=== PATIENT | male | born 1990 | race Caucasian/White ===

== ENCOUNTER 2024-04-09 19:48 | Emergency (ER) | payer MEDICAID ==
[2024-04-09 20:19] LABS: BILIRUBIN,URINE NEGATIVE (NEGATIVE); GLUCOSE, URINE (UA) NEGATIVE (NEGATIVE); KETONES,URINE (UA) NEGATIVE (NEGATIVE); LEUKOCYTE ESTERASE, URINE NEGATIVE (NEGATIVE); NITRITE,URINE NEGATIVE (NEGATIVE); OCCULT BLOOD,URINE NEGATIVE (NEGATIVE); PROTEIN,URINE NEGATIVE (NEGATIVE); UROBILINOGEN,URINE 0.2 (NORMAL) E.U./dL (NORMAL)
[2024-04-09 20:22] LABS: BASOPHILS # (AUTO) 0.1 10^3/uL (0.0-0.1); BASOPHILS % (AUTO) 0.9 %; HGB - HEMOGLOBIN 14.8 g/dL (14.0-18.0); LYMPHOCYTES # (AUTO) 2.5 10^3/uL (1.5-3.5); LYMPHOCYTES % (AUTO) 27.8 %; MEAN CORPUSCULAR HEMOGLOBIN 30.6 pg (27.0-31.0); MEAN CORPUSCULAR HGB CONC 33.6 g/dL (32.0-36.0); MEAN CORPUSCULAR VOLUME 90.9 fL (80.0-94.0); MONOCYTES # (AUTO) 0.5 10^3/uL (0.0-1.0); MONOCYTES % (AUTO) 5.8 %; NEUTROPHILS # (AUTO) 5.7 10^3/uL (1.5-6.6); NEUTROPHILS % (AUTO) 65.3 %; PLT - PLATELET COUNT 266 10^3/uL (130-450); RED BLOOD COUNT 4.84 10^6/uL (4.70-6.10); RED CELL DISTRIBUTION WIDTH 12.4 % (12.0-15.0); WHITE BLOOD COUNT 8.8 x10^3/uL (4.8-10.8)
--- NOTE | 2024-04-09 20:25 | ED Physician Documentation ---
PD HPI MHE - Stated complaint Stated Complaint: MHE - Chief complaint Chief Complaint: MHE - History obtained from History obtained from: Patient - History of Present Illness Primary symptom: Suicidal ideation, Depression Pain level max: 0 Pain level now: 0 - Additional information Additional information: Patient is a 34-year-old male who recently moved here from [place]. He states that he has a longstanding history of depression. He had been on Lexapro in the past but did not want to be on it long-term, therefore he weaned himself off about a year ago. Since moving to the [place] he has not been able to find a psychiatrist or primary care provider. He went to the walk-in clinic today and was sent here for evaluation. He states that he does have suicidal thoughts but does not have any intention to act on them. He states he does not have a plan. He states he has never attempted suicide and has never been hospitalized. He is interested in restarting his Lexapro. No hallucinations. Uses marijuana occasionally. Rarely drinks alcohol. Review of Systems Constitutional: denies: Fever, Chills GI: denies: Vomiting Skin: denies: Rash Musculoskeletal: denies: Neck pain, Back pain Neurologic: denies: Headache PD PAST MEDICAL HISTORY - Past Medical History Past Medical History: Yes Cardiovascular: None Respiratory: None Neuro: None Endocrine/Autoimmune: None GI: None : None HEENT: None Psych: Depression Musculoskeletal: Other Derm: None Other Past Medical History: DJD - Past Surgical History Past Surgical History: Yes - Present Medications Home Medications: Ambulatory Orders Medication Instructions Recorded Confirmed Escitalopram [Lexapro] 10 mg PO DAILY #30 tablet 04/09/24 - Allergies Allergies/Adverse Reactions: Allergies Allergy/AdvReac Type Severity Reaction Status Date / Time No Known Drug Allergies Allergy Verified 04/09/24 20:01 - Social History Does the pt smoke?: No Smoking Status: Never smoker Does the pt drink ETOH?: Yes ETOH Use: Beer PD ED PE NORMAL - Vitals Vital signs reviewed: Yes - General General: Alert and oriented X 3, No acute distress - HEENT HEENT: PERRL, Moist mucous membranes - Neck Neck: Supple, no meningeal sign - Cardiac Cardiac: RRR - Respiratory Respiratory: No respiratory distress, Clear bilaterally - Abdomen Abdomen: Soft, Non tender, Non distended - Derm Derm: Warm and dry - Neuro Neuro: Alert and oriented X 3 - Psych Psych: Normal mood, Normal affect Results - Vitals Vitals: Vital Signs - 24 hr 04/09/24 04/09/24 04/09/24 19:52 20:00 22:46 Temperature 37.9 C Heart Rate 72 72 70 Respiratory 16 16 Rate Blood Pressure 127/100 H 125/89 H O2 Saturation 99 98 Oxygen O2 Source Room air - Labs Labs: Laboratory Tests 04/09/24 04/09/24 04/09/24 20:07 20:15 20:15 WBC 8.8 RBC 4.84 Hgb 14.8 Hct 44.0 MCV 90.9 MCH 30.6 MCHC 33.6 RDW 12.4 Plt Count 266 MPV 10.0 Neut # (Auto) 5.7 Lymph # (Auto) 2.5 [place] # (Auto) 0.5 Eos # (Auto) 0.0 Baso # (Auto) 0.1 Absolute Nucleated RBC 0.00 Nucleated RBC % 0.0 Sodium 138 Potassium 3.4 L Chloride 102 Carbon Dioxide 30 Anion Gap 6.0 BUN 16 Creatinine 0.9 Estimated GFR (MDRD) 97 Glucose 120 H Calcium 9.5 Magnesium 1.9 Total Bilirubin 0.7 AST 16 ALT 14 Alkaline Phosphatase 88 Total Protein 7.7 Albumin 4.9 Globulin 2.8 Albumin/Globulin Ratio 1.8 Lipase 16 TSH 2.90 Urine Color YELLOW Urine Clarity HAZY Urine pH 7.0 Ur Specific [place] 1.015 Urine Protein NEGATIVE Urine Glucose (UA) NEGATIVE Urine Ketones NEGATIVE Urine Occult Blood NEGATIVE Urine Nitrite NEGATIVE Urine Bilirubin NEGATIVE Urine Urobilinogen 0.2 (NORMAL) Ur Leukocyte Esterase NEGATIVE Urine RBC None Seen Urine WBC 0-3 Ur Squamous Epith Cells NONE SEEN Amorphous Sediment Marked Urine Bacteria None Seen Ur Microscopic Review INDICATED Urine Culture Comments NOT INDICATED Salicylates < 1.5 Urine Opiates Screen NEGATIVE Ur Buprenorphine Scrn NEGATIVE Ur Oxycodone Screen NEGATIVE Urine Methadone Screen NEGATIVE Acetaminophen 0.1 Ur Barbiturates Screen NEGATIVE Ur Tricyclics Screen NEGATIVE Ur Phencyclidine Scrn NEGATIVE Ur Amphetamine Screen NEGATIVE U Methamphetamines Scrn NEGATIVE U Benzodiazepines Scrn NEGATIVE Urine Cocaine Screen NEGATIVE U Cannabinoids Screen POSITIVE H Ur Drug Screen Comment CUTOFF CONC BELOW: Ethyl Alcohol < 10.0 PD Medical Decision Making - ED course Complexity details: reviewed results, re-evaluated patient, considered differential, d/w patient ED course: Patient is medically clear for psychiatric care. Telepsychiatry consulted. Patient was seen by telepsychiatry. Recommended restarting his Lexapro. This was performed. Information was given for the mobile crisis outreach team. Patient does not [facility] to go to a crisis [facility]. He is able to contract for safety, lives with his mother who will also be home for him. 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 Has no history of prior suicide attempts. Information given regarding the mobile crisis outreach team and [facility]. We will restart his Lexapro. Patient counseled regarding signs and symptoms for which I believe and urgent re-evaluation would be necessary. Patient with good understanding of and agreement to plan and is comfortable going home at this time This document was made in part using voice recognition software. While efforts are made to proofread this document, sound alike and grammatical errors may occur. Departure - Departure Disposition: Home, Self Care Clinical Impression: Depression Qualifiers: Depression Type: major depressive disorder Major depression recurrence: recurrent Active/Remission status: currently active Major depression episode severity: moderate Qualified Code(s): F33.1 - Major depressive disorder, recurrent, moderate Condition: Good Instructions: ED Depression Follow-Up: your,doctor in 1 week [Other] Primary [facility] [place] [Provider Group] Primary/Walk In [place] [Provider Group] Prescriptions: Escitalopram [Lexapro] 10 mg PO DAILY #30 tablet Comments: We will restart you on your Lexapro. A prescription was sent to [facility] in [place]. It is recommended that you follow-up with psychiatry as well, this may be able to be started through the [place] [facility]. There is also a mobile crisis outreach team which can often help if you feel you are in crisis, you can contact the [facility] at and speak with a mental health professional who was able to dispatch the mobile crisis outreach team to you. Please return if you worsen. If you are having any thoughts that you do not want to live, thoughts of hurting yourself, or thoughts of hurting anyone else, please call 911, the crisis line at [phone], or go to your nearest emergency department. Crisis Line and is available to talk to someone [email or web address] is also available to chat with someone online if you prefer. There are also many resources on this website and apps for your phone to help with your mental health You can also text the word START to [phone] to chat with someome via text. Forms: PCP List Discharge Date/Time: 04/09/24 22:49
[2024-04-09 20:26] LABS: CLARITY,URINE HAZY (CLEAR)
[2024-04-09 20:33] LABS: ACETAMINOPHEN 0.1 ug/mL; ALBUMIN 4.9 g/dL (3.2-5.5); ALBUMIN/GLOBULIN RATIO 1.8 (1.0-2.2); ALKALINE PHOSPHATASE 88 IU/L (42-121); ALT ALANINE AMINOTRANSFERASE 14 IU/L (10-60); AST ASPARTATE AMINOTRANSFERASE 16 IU/L (10-42); BILIRUBIN,TOTAL 0.7 mg/dL (0.2-1.0); BUN - BLOOD UREA NITROGEN 16 mg/dL (6-20); CALCIUM 9.5 mg/dL (8.5-10.3); CARBON DIOXIDE - CO2 30 mmol/L (21-32); CHLORIDE 102 mmol/L (101-111); CREATININE 0.9 mg/dL (0.6-1.3); ETOH - ETHANOL < 10.0 mg/dL; GFR - MDRD 97 (>89); GLUCOSE 120 mg/dL (74-104); LIPASE 16 U/L (11-82); MAGNESIUM 1.9 mg/dL (1.7-2.3); POTASSIUM 3.4 mmol/L (3.5-4.5); SODIUM 138 mmol/L (135-145); TOTAL PROTEIN 7.7 g/dL (6.4-8.9)
[2024-04-09 20:34] LABS: AMPHETAMINE SCREEN,URINE NEGATIVE (NEGATIVE); BARBITURATE SCREEN,UR NEGATIVE (NEGATIVE); BENZODIAZEPINES SCREEN, URINE NEGATIVE (NEGATIVE); BUPRENORPHINE SCREEN, URINE NEGATIVE (NEGATIVE); COCAINE SCREEN URINE NEGATIVE (NEGATIVE); METHADONE SCREEN, URINE NEGATIVE (NEGATIVE); METHAMPHETAMINES SCREEN, URINE NEGATIVE (NEGATIVE); OPIATE SCREEN, URINE NEGATIVE (NEGATIVE); OXYCODONE SCREEN, URINE NEGATIVE (NEGATIVE); THC CANNABINOID SCREEN, URINE POSITIVE (NEGATIVE); TRICYCLIC ANTIDEPRESSANT,URINE NEGATIVE (NEGATIVE)
[2024-04-09 20:39] LABS: SALICYLATE < 1.5 mg/dL
[2024-04-09 20:41] LABS: AMORPHOUS SEDIMENT,UR Marked /LPF; BACTERIA,URINE None Seen /HPF (None Seen); RBC,URINE None Seen /HPF (0-5); SQUAMOUS EPITHELIAL CELL,UR NONE SEEN (<= Few); WBC,URINE 0-3 /HPF (0-3)
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
[2024-04-09 22:47] VITALS: BP 125/89; O2SAT 98
== END 2024-04-09 22:49 | disposition home or self-care (01) ==
LOC: ED 19:48
DX: F33.1 Major depressive disorder, recurrent, moderate (principal)
CPT/HCPCS: 36415; 80053; 80143; 80179; 80306; 81001; 82077; 83690; 83735; 84443; 85025; 99283; G0425; Q3014; 81003; 87086